=== PATIENT | female | born 1975 | race Hispanic/Latino ===

== ENCOUNTER 2016-11-25 12:32 | Emergency (ER) | payer OTHER ==
[2016-11-25 13:38] VITALS: BMI 28.8
[2016-11-25] MEDS: Lactated Ringer's 500 ML IV SCH ×2 (13:50→14:20)
[2016-11-25 14:49] LABS: RBC URINE 2 /hpf (0-3); URINE BACTERIA FEW (<OCC); URINE BILIRUBIN NEGATIVE (NEGATIVE); URINE BLOOD MODERATE (NEGATIVE); URINE COLOR YELLOW (YELLOW); URINE GLUCOSE (UA) NEG (Normal); URINE KETONE NEGATIVE (NEGATIVE); URINE LEUKOCYTE ESTERASE TRACE Leu/uL (Negative); URINE PROTEIN NEGATIVE (NEGATIVE); URINE UROBILINOGEN 0.2-1.0 mg/dL (0.2-1.0); WBC URINE 2 /hpf (0-5)
--- NOTE | 2016-11-25 16:22 | US ---
PROCEDURE: Obstetrical ultrasound examination HISTORY: vaginal bleeding COMPARISON: Not available TECHNIQUE: Transabdominal FINDINGS: Limited obstetrical ultrasound examination demonstrates a single live intrauterine gestation in transverse presentation with head towards the maternal right. The heart rate is 157 beats per minute. A normal quantity of amniotic fluid is visualized. A posterior placenta is identified. The placenta is low-lying. The placental margin is seen within 12 mm of the internal cervical os. Followup with ultrasound is advised. The cervix is closed and measures 6.1 cm in length. biometry yields a gestational age of 21 weeks 0 days. PERCY by ultrasound is 04/07/2017. The EFW is 379.48 g. No anatomic evaluation was performed at this time. IMPRESSION: Single live intrauterine gestation of approximately 21 weeks 0 days gestational age. heart rate 157. Posterior placenta. The placenta is low-lying. Followup is advised with ultrasound. Transverse lie towards maternal right. Cervix long and closed.
[2016-11-26 02:29] VITALS: BP 109/84; PULSE 64; O2SAT 100
== END 2016-11-25 17:32 | disposition home or self-care (01) ==
LOC: H.EROB2 12:32
DX: O47.02 False labor before 37 completed weeks of gestation, second trimester (principal); Z3A.22 22 weeks gestation of pregnancy
CPT/HCPCS: 76815; 81003; 99284; J7120